=== PATIENT | female | born 1990 | race Caucasian/White ===

== ENCOUNTER → 2017-01-21 | Outpatient (CLI) | payer OTHER | LOC: FIMAGING 12:26 | PROVIDERS: ATTEND Obstetrics & Gynecology | DX: Z34.02 Encounter for supervision of normal first pregnancy, second trimester (principal); Z3A.19 19 weeks gestation of pregnancy ==

== ENCOUNTER → 2017-04-10 | Outpatient (CLI) | payer OTHER | LOC: FIMAGING 13:47 | PROVIDERS: ATTEND Obstetrics & Gynecology | DX: O36.63X1 Maternal care for excessive fetal growth, third trimester, fetus 1 (principal); Z3A.30 30 weeks gestation of pregnancy ==

== ENCOUNTER → 2017-05-08 | Outpatient (CLI) | payer OTHER | LOC: FIMAGING 13:52 | PROVIDERS: ATTEND Obstetrics & Gynecology | DX: O35.8XX0 Maternal care for other (suspected) fetal abnormality and damage, not applicable or unspecified (principal); Z3A.34 34 weeks gestation of pregnancy ==

== ENCOUNTER 2017-05-09 14:41 | Observation (INO) | payer OTHER ==
[2017-05-09] MEDS ORDERED: BETAMETHASONE IM SYRINGE IM ONE (14:58)
[2017-05-09 15:33] LABS: % IMMATURE GRANULYOCYTES 2.3 % (0.0-1.1); ABSOLUTE IMMATURE GRANULOCYTES 0.28 10^3/uL (0.00-0.10); ADD DIFF? NO; ADD MORPH? NO; ADD SCAN? NO; ATYPICAL LYMPHOCYTE FLAG 0 (0-99); FRAGMENT RBC FLAG 0 (0-99); HEMATOCRIT 37.9 % (38.0-47.0); HEMOGLOBIN 13.6 g/dL (12.6-16.3); LEFT SHIFT FLG 20 (0-99); LIPEMIA HEMOLYSIS FLAG 90 (0-99); MEAN CELL HEMOGLOBIN 33.5 pg (27.9-34.1); MEAN CELL HEMOGLOBIN CONCENTR. 35.9 g/dL (32.4-36.7); MEAN CELL VOLUME 93.3 fL (81.5-99.8); MEAN PLATELET VOLUME 11.1 fL (8.7-11.7); PLATELET CLUMPS FLAG 0 (0-99); PLATELET COUNT 229 10^3/uL (150-400); RED BLOOD CELL COUNT 4.06 10^6/uL (4.18-5.33); RED CELL DISTRIBUTION WIDTH 12.2 % (11.5-15.2)
[2017-05-09 15:41] LABS: ALANINE AMINOTRANSFERASE 31 IU/L (9-52); ASPARTATE AMINOTRANSFERASE 26 IU/L (14-46); BILIRUBIN,TOTAL 0.3 mg/dL (0.1-1.4); BILIRUBIN-CONJUGATED 0.2 mg/dL (0.0-0.5); BILIRUBIN-UNCONJUGATED 0.1 mg/dL (0.0-1.1); CREATININE 0.6 mg/dL (0.6-1.0); GLOMERULAR FILTRATION RATE > 60; LACTATE DEHYDROGENASE 575 IU/L (313-618); URIC ACID 4.9 mg/dL (2.5-6.8)
--- NOTE | 2017-05-09 19:32 | GHP ---
[f rep st] HISTORY AND PHYSICAL DATE OF ADMISSION: 05/09/2017 CHIEF COMPLAINT: Mild headache. HISTORY OF PRESENT ILLNESS: The patient is a 26-year-old, 1, para 0, female at 34 weeks and 6 days estimated gestational age, JULIANN of 06/14/2016, who presented to her routine OB visit for a nonstress test for mild preeclampsia. She was noted in clinic to have blood pressures that were up to 160/110. She reported having an intermittent headache off and on the last 3 days. She described it as mild, dull, frontal and ranked 2 to 3/10. She had no visual changes. No right upper quadrant pain. She has no contractions, leakage of fluid, or vaginal bleeding. Reports good movement. PAST MEDICAL HISTORY: Childhood asthma. PAST SURGICAL HISTORY: None. ALLERGIES: No known drug allergies. MEDICATIONS: vitamin. OB PROBLEM LIST: GBS positive from GBS bacteria, status post the flu and Tdap vaccines, mild preeclampsia with elevated 24-hour urine at 320 mg. Varicella nonimmune. Genetic screening all declined. Echogenic foci seen in the brain this week. However, on further discussion with the perinatologist, they do not think this is an issue and think it is a variation of normal. LABS: Blood type O-positive, antibody screen negative, varicella nonimmune, rubella immune. RPR nonreactive. Hepatitis B surface antigen, HIV negative, gonorrhea and chlamydia negative, 1-hour GTT normal. PHYSICAL EXAMINATION: VITAL SIGNS: Blood pressure ranges from 130s over 80s to 157/98. Heart rate 60s to 70, and temperature 36.8 degrees Celsius. heart rate tracing 130s, reactive and reassuring with moderate variability present, and no decelerations. TOCOMETER: Irregular contractions seen that are not being palpated or felt by the patient. GENERAL: No acute distress. CHEST: Clear to auscultation bilaterally. CARDIOVASCULAR: Regular rate and rhythm. ABDOMEN: Gravid and nontender. NEUROLOGIC: DTRs 2+ bilaterally. LABS: CBC normal with hematocrit of 37 and platelets of 229, chemistry panel normal with creatinine of 0.6, uric acid 4.9, and normal liver function tests. LDH is 575 and normal. ASSESSMENT: Patient is a 26-year-old, 1, para 0, female at 34 weeks and 6 days estimated gestational age with mild preeclampsia and intermittent blood pressures in the severe range. PLAN: 1. Admit for observation. 2. Mild preeclampsia: Discussed the patient's status with the perinatologist, Dr. Susan Elaine. She has had intermittent blood pressures near and at the severe range. However, they have not been persistent over 6 hours apart. Her serum labs are normal. She does have an intermittent headache which is currently gone. The recommendation from the perinatologist is to proceed with treating her blood pressures with labetalol 100 mg twice daily. We will monitor closely. We will deliver for any signs of severe preeclampsia represented by symptoms of preeclampsia that are persistent, abnormal labs concerning for HELLP syndrome, or nonreassuring status. We will plan for repeat PIH labs in the morning and continue with a 24-hour urine during this admission. 3. status reassuring. We will plan for NSTs three times daily. 4. GBS positive. 5. Activity: Bedrest with bathroom privileges. /[id number]/MODL MTDD
[2017-05-09] MEDS: ACETAMINOPHEN 325 MG TAB PO PRN (19:56)
[2017-05-09] MEDS: LABETALOL HCL 100 MG TAB PO SCH (19:58)
[2017-05-10 06:51] LABS: ALANINE AMINOTRANSFERASE 30 IU/L (9-52); ASPARTATE AMINOTRANSFERASE 25 IU/L (14-46); CREATININE 0.6 mg/dL (0.6-1.0); GLOMERULAR FILTRATION RATE > 60; LACTATE DEHYDROGENASE 465 IU/L (313-618); URIC ACID 4.7 mg/dL (2.5-6.8)
[2017-05-10 07:09] LABS: ADD DIFF? YES; ADD MORPH? NO; ADD SCAN? NO; ATYPICAL LYMPHOCYTE FLAG 0 (0-99); FRAGMENT RBC FLAG 0 (0-99); HEMOGLOBIN 12.9 g/dL (12.6-16.3); LEFT SHIFT FLG 10 (0-99); LIPEMIA HEMOLYSIS FLAG 90 (0-99); MEAN CELL HEMOGLOBIN 32.7 pg (27.9-34.1); MEAN CELL HEMOGLOBIN CONCENTR. 34.9 g/dL (32.4-36.7); MEAN CELL VOLUME 93.9 fL (81.5-99.8); MEAN PLATELET VOLUME 11.1 fL (8.7-11.7); PLATELET CLUMPS FLAG 0 (0-99); PLATELET COUNT 229 10^3/uL (150-400); RED BLOOD CELL COUNT 3.94 10^6/uL (4.18-5.33); RED CELL DISTRIBUTION WIDTH 12.2 % (11.5-15.2)
[2017-05-10 07:23] LABS: GIANT PLATELETS PRESENT; PLATELET ESTIMATE ADEQUATE (ADEQ)
[2017-05-10] MEDS: ACETAMINOPHEN 325 MG TAB PO PRN (08:23)
[2017-05-10] MEDS: LABETALOL HCL 100 MG TAB PO SCH (09:13)
[2017-05-10 09:15] VITALS: BP 122/63; PULSE 75
--- NOTE | 2017-05-10 10:39 | OBPROG ---
OBG Labor Progress Note Assessment/Plan: Assessment: 26 y/o at 35+0 weeks EGA admitted for observation to r/o severe preeclampsia - feeling well and clinically stable Plan: 1) status reassuring - s/p one dose of BTMZ. 2nd dose due today. 2) Preeclampsia - BP's controlled well with labetalol. No PIH symptoms, AYERS resolved. PIH labs normal and stable. This is all reassuring. Plan for 2nd dose of steroids today, then will discharge home if all remains stable. Discussed plan for bedrest at home on discharge. All questions answered. Will plan for IOL at 37 weeks if undelivered. 05/10/17 10:34 Subjective: Pt has no complaints. She reports her AYERS is gone completely. No visual changes /RUQ pain. No lof/vb/ctx and good FM. Feels well. Objective: 05/10/17 06:27 05/09/17 15:20 Uric Acid 4.9 mg/dL (2.5-6.8) 05/09/17 15:20 Total Bilirubin 0.3 mg/dL (0.1-1.4) 05/09/17 15:20 Conjugated Bilirubin 0.2 mg/dL (0.0-0.5) 05/09/17 15:20 Unconjugated Bilirubin 0.1 mg/dL (0.0-1.1) 05/09/17 15:20 AST 26 IU/L (14-46) 05/09/17 15:20 ALT 31 IU/L (9-52) 05/09/17 15:20 Lactate Dehydrogenase 575 IU/L (313-618) 05/09/17 15:20 Temp Pulse Resp BP Pulse Ox 75 122/63 H 05/10/17 09:13 05/10/17 09:13 BPs normal range overnight. No BPs > 140/90 since start of labetalol. [place] Current Contraction Pattern: Other (Specify) (none) FHR (bpm): 120 FHR Pattern Variability: Moderate FHR Category: 1 Oxytocin Orders Assessment - Pre-Induction/Augmentation Assessment Gestational Age: 34 week(s) and 6 day(s) ICD10 Worksheet Patient Problems: Problems Problem Status Onset Preeclampsia Acute - ICD10 Problem Qualifiers (1) Preeclampsia Qualifiers: Trimester: third trimester Qualified Code(s): O14.93 - Unspecified pre- eclampsia, third trimester
[2017-05-10] MEDS ORDERED: BETAMETHASONE IM SYRINGE IM ONE ×2 (14:57→15:32)
--- NOTE | 2017-05-10 16:03 | PDDCSUM ---
Discharge Summary Discharge Summary: Admission date = 05/09/17 Admission date = 05/10/17 Admission diagnosis: IUP at 34+6 weeks, preeclampsia Discharge diagnosis: IUP at 35+0 weeks, preeclampsia Hospital course: Pt was admitted for observation for elevated BP's in clinic. After admission, her BP's ranged from 130-157/80s-98. She was started on labetalol and her BP's were subsequently all normal. Her PIH serum labs were all normal. She completed a repeat 24hr urine protein that was pending at time of discharge. She initially was symptomatic with a AYERS that resolved with tylenol and did not recur. Her case was discussed on admission with the perinatologist who recommended that the plan to start labetalol and aim for delivery at 37 weeks, as long as other symptoms of severe preeclampsia do not develop. Meds: labetalol 100mg BID, PNV Labs: PIH panel all normal, 24hr urine protein pending F/U in 2 days for OB visit/NST or sooner prn PTL/PIH/FKC precautions reviewed
[2017-05-10 19:42] LABS: URINE VOLUME 4300 mL
[2017-05-10 19:51] LABS: 24 HOUR URINE PROTEIN 473 mg/24HR (42-225); RANDOM URINE PROTEIN 11 mg/dL (0-11)
== END 2017-05-10 17:00 | disposition home or self-care (01) ==
LOC: FLD 14:41
PROVIDERS: ADMIT Midwife; ATTEND Obstetrics & Gynecology
DX: O14.03 Mild to moderate pre-eclampsia, third trimester (principal); Z3A.35 35 weeks gestation of pregnancy
CPT/HCPCS: 59025; G0378; J0702